=== PATIENT | male | born 1955 | race Caucasian/White ===

== ENCOUNTER → 2018-05-10 | Outpatient (CLI) | payer BC | LOC: GMAE 10:56 | PROVIDERS: ATTEND Family Medicine | DX: Z00.01 Encounter for general adult medical examination with abnormal findings (principal) ==

== ENCOUNTER → 2018-07-12 | Outpatient (CLI) | payer BC ==
--- NOTE | 2018-07-12 09:30 | US ---
EXAM DESCRIPTION: Aorta CLINICAL HISTORY: 63 years Male, AAA COMPARISON: None. TECHNIQUE: Aortic imaging was performed with tolentino scale and color Doppler images. Spectral waveform and velocity measurement obtained. FINDINGS: The aorta appears normal. Proximal aorta measures 2.4 x 2.4 cm. The mid abdominal aorta measures 1.8 x 2.1 cm. The distal abdominal aorta measures 1.8 x 2.2 cm. No aneurysm is seen. Normal appearance of the common iliac arteries. Color flow imaging shows positive color flow in the lumen of the aorta. The peak systolic velocity is 86 cm/s which is normal. IMPRESSION: Negative for evidence of abdominal aortic aneurysm. Electronically signed by: Jax Herbert MD 07/12/2018 9:29 AM FLIGHT TEST ENGINEER
== END ==
LOC: US 08:25
PROVIDERS: ATTEND Family Medicine
DX: Z13.89 Encounter for screening for other disorder (principal)

== ENCOUNTER → 2019-04-12 | Outpatient (CLI) | payer BC ==
--- NOTE | 2019-04-13 08:37 | US ---
EXAM DESCRIPTION: Renal Arteries: Ultrasound. CLINICAL HISTORY: HYPERTENSION COMPARISON: Ultrasound aorta June 2018. TECHNIQUE: Transcutaneous scanning: Doppler systolic and diastolic measurements of the abdominal aorta, renal arteries, intra renal arteries, and renal veins. FINDINGS: Arnold scale evaluation of the bilateral kidneys not performed. PSV (cm/sec): Aorta: 91.7 Right renal artery: 59.7 Left renal artery: 252 EDV (cm/sec): Right renal artery: 17.4 Left renal artery: 18 Renal veins: Visualized IVC: Visualized. Intrarenal RI's: Distal left renal artery 0.64. Distal right renal artery 0.69. Renal Aortic Ratio: Right RAR = RRA PSV/Aortic PSV = 60 /92= 0.65. Left RAR = LRA PSV/Aortic PSV = 252/92 = 2.74. End Diastolic Ratio: Right EDR = RRA EDV/RRA PSV = 17.4/59.7 = 0.29. Left EDR = LRA EDV/LRA PSV = 18/252= 0.07. Other: None.. IMPRESSION: 1. High velocity in the left renal artery with left renal artery aortic ratio 2.7 which is below the upper normal value of 3.5, indicating no significant renal artery stenosis. Distal left renal artery RI value upper normal range. Right renal aortic ratio and distal right renal RI value within normal range. 2. Markedly decreased left renal end-diastolic ratios suggestive of significant renovascular disease in the left kidney. Right renal end diastolic ratio is low normal range. Electronically signed by: Cosmo Moss MD 04/13/2019 8:35 AM CDT
== END ==
LOC: US 09:35
PROVIDERS: ATTEND Family Medicine
DX: I10 Essential (primary) hypertension (principal)

== ENCOUNTER → 2019-05-11 | Outpatient (CLI) | payer BC | LOC: GMAE 10:46 | PROVIDERS: ATTEND Family Medicine | DX: Z00.00 Encounter for general adult medical examination without abnormal findings (principal) ==

== ENCOUNTER → 2020-05-27 | Outpatient (CLI) | payer BC | LOC: GMAE 10:37 | PROVIDERS: ATTEND Family Medicine | DX: Z00.00 Encounter for general adult medical examination without abnormal findings (principal) ==